=== PATIENT | female | born 1990 | race Two or more races ===

== ENCOUNTER 2016-07-20 08:49 | Emergency (ER) | payer MEDICAID ==
[~2016-07-20] VITALS: Ht 152.4 cm; Wt 72.7 kg
[~2016-07-20 08:49] MED LIST: PREN1TAB27 PO
[2016-07-20] MEDS ORDERED: KETOROLAC 30 MG/1 ML IVPush ONE (09:30)
[2016-07-20] MEDS ORDERED: SODIUM CHLORIDE FLUSH 10ML SYR IVF ONE (09:30)
[2016-07-20] MEDS ORDERED: KETOROLAC 30 MG/1 ML ONE (09:38)
[2016-07-20 09:54] LABS: BLOOD UREA NITROGEN 10 mg/dL (7-18)
[2016-07-20] MEDS ORDERED: HYDROcodone/APAP 5/325 TABLET PO ONE (11:00)
[2016-07-20 11:28] VITALS: BP 134/68
== END 2016-07-20 11:30 | disposition home or self-care (01) ==
LOC: ED 11:25
DX: M94.0 Chondrocostal junction syndrome [Tietze] (principal)
CPT/HCPCS: 36415; 71020; 80048; 82040; 84484; 85025; 85379; 93005; 96374; 99285; J1885

== ENCOUNTER 2016-08-14 02:13 | Emergency (ER) | payer MEDICAID | END 2016-08-14 03:40 | LOC: ED 02:13 | DX: R07.89 Other chest pain (principal); K21.9 Gastro-esophageal reflux disease without esophagitis | CPT/HCPCS: 93005; 99283 ==

== ENCOUNTER 2017-03-29 12:13 | Emergency (ER) | payer MEDICAID, OTHER ==
[~2017-03-29] VITALS: Ht 152.4 cm; Wt 70.9 kg
[2017-03-29] MEDS ORDERED: KETOROLAC 30 MG/1 ML IM ONE (14:30)
[2017-03-29] MEDS ORDERED: OXYcodone/APAP 5/325MG TABLET PO ONE (14:30)
[2017-03-29] MEDS ORDERED: DIAZEPAM 5 MG TABLET PO ONE (14:30)
[2017-03-29] MEDS ORDERED: DIAZEPAM 5 MG TABLET ONE (14:35)
[2017-03-29] MEDS ORDERED: KETOROLAC 30 MG/1 ML ONE (14:36)
[2017-03-29] MEDS ORDERED: OXYcodone/APAP 5/325MG TABLET ONE (14:36)
[2017-03-29 15:22] VITALS: BP 128/78
== END 2017-03-29 14:22 | disposition home or self-care (01) ==
LOC: ED 14:16
DX: G89.29 Other chronic pain (principal); M54.5 Low back pain; K21.9 Gastro-esophageal reflux disease without esophagitis
CPT/HCPCS: 96372; 99283; J1885

== ENCOUNTER 2019-03-31 14:55 | Emergency (ER) | payer MEDICAID ==
[~2019-03-31] VITALS: Ht 165.1 cm; Wt 83.7 kg
[2019-03-31 14:57] VITALS: BP 134/85
--- NOTE | 2019-03-31 15:18 | NUR ---
Pt reports she had shrimp soup at work and went into anaphylaxis and started breathing labored, and her face swelled up. Pt was given allergy medications by md on scene (epi 0.03, solumedrol 62.5mg, benadryl 50mg,) pt medications reversed. Pt resting in room, vss. Pt reports no airway obstruction or difficulty breathing.
--- NOTE | 2019-03-31 17:22 | NUR ---
Patient/Caregiver given discharge instructions and they have confirmed that they understand the instructions. Patient ambulatory with steady gait.
== END 2019-03-31 17:26 | disposition home or self-care (01) ==
LOC: ED 17:00
DX: T78.3XXA Angioneurotic edema, initial encounter (principal); K21.9 Gastro-esophageal reflux disease without esophagitis
CPT/HCPCS: 99283

== ENCOUNTER 2019-04-03 11:37 | Emergency (ER) | payer MEDICAID ==
[~2019-04-03] VITALS: Ht 162.6 cm; Wt 81.8 kg
--- NOTE | 2019-04-03 13:35 | NUR ---
from lobby to room. as
[2019-04-03] MEDS ORDERED: GABA300C10 PO (13:46)
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
[2019-04-03 14:13] LABS: BASOPHILS # (AUTO) 0.08 x10^3/uL (0-0.1); BASOPHILS % (AUTO) 1 % (0-1); EOSINOPHILS # (AUTO) 0.12 x10^3/uL (0-0.4); EOSINOPHILS % (AUTO) 1 % (1-7); LYMPHOCYTES # (AUTO) 1.78 x10^3/uL (1-3.4); LYMPHOCYTES % (AUTO) 21 % (22-44); MD NO; MEAN CORPUSCULAR HEMOGLOBIN 30.4 pg (27.0-34.8); MEAN CORPUSCULAR HGB CONC 33.8 g/dL (32.4-35.8); MEAN CORPUSCULAR VOLUME 89.9 fL (80-100); MEAN PLATELET VOLUME 7.6 fL (7.4-10.4); MONOCYTES # (AUTO) 0.35 x10^3/uL (0.2-0.8); MONOCYTES % (AUTO) 4 % (2-9); NEUTROPHILS # (AUTO) 6.01 x10^3/uL (1.8-6.8); NEUTROPHILS % (AUTO) 72 % (42-75); PLATELET COUNT 211 x10^3/uL (130-400); RED BLOOD COUNT 4.55 x10^6/uL (3.82-5.3); RED CELL DISTRIBUTION WIDTH 13.6 % (9.6-15.2)
[2019-04-03 14:25] LABS: ALANINE AMINOTRANSFERASE 36 U/L (12-78); ALBUMIN 3.2 g/dL (3.4-5.0); ANION GAP 5 mmol/L (5-15); CALCIUM 8.6 mg/dL (8.5-10.1); CHLORIDE 110 mmol/L (98-107); CREATININE 0.61 mg/dL (0.55-1.02)
[2019-04-03 14:30] LABS: ALKALINE PHOSPHATASE 61 U/L (45-117); BILIRUBIN,TOTAL 0.3 mg/dL (0.2-1.0); T4 (THYROXINE) 11.8 mcg/dL (4.8-13.9); TOTAL PROTEIN 6.6 g/dL (6.4-8.2)
--- NOTE | 2019-04-03 14:54 | NUR ---
REPORT FROM DIOMEDES. RESULTS BACK, PT FOR RECHECK.
[2019-04-03 15:53] VITALS: BP 128/81
--- NOTE | 2019-04-03 15:54 | NUR ---
PT AMBULATORY WITH STEADY GAIT TO DC DESK.
== END 2019-04-03 15:55 | disposition home or self-care (01) ==
LOC: ED 15:14
DX: R55 Syncope and collapse (principal); R00.2 Palpitations
CPT/HCPCS: 36415; 71045; 80053; 83735; 84436; 84443; 84703; 85025; 93005; 99284

== ENCOUNTER 2019-04-25 07:47 | Inpatient (IN) | payer MEDICAID ==
[~2019-04-25] VITALS: Ht 152.4 cm; Wt 80.8 kg
[~2019-04-25 07:47] MED LIST changes: +GABA300C10 PO
[2019-04-25] MEDS ORDERED: MORPHINE SULFATE 4 MG/ML, 1ML ONE ×2 (08:00→10:02)
[2019-04-25] MEDS ORDERED: ONDANSETRON 2MG/ML, 2ML ONE (08:00)
[2019-04-25] MEDS ORDERED: ONDANSETRON 2MG/ML, 2ML IVPush ONE (08:00)
[2019-04-25] MEDS ORDERED: SODIUM CHLORIDE FLUSH 10ML SYR IVF ONE (08:00)
--- NOTE | 2019-04-25 08:03 | NUR ---
THIS IS A 28 YEAR OLD FEMALE WHO WAS BIB AMBULANCE DUE TO SEVERE UPPER MID ABD PAIN. 12/18. PT RECEIVED 4 ABILIO, 100MCG OF FENTANYL, 250CC OF NORMAL SALINE. PT STATES PAIN IS NOW 10/18. OBTAIN URINE SENT TO LAB. DISCUSSED PLAN OF CARE. PT VERBALIZED UNDERSTANDING
[2019-04-25] MEDS: MORPHINE SULFATE 4 MG/ML, 1ML IVPush PRN ×2 (08:06→10:06)
[2019-04-25 08:24] LABS: MICROSCOPIC INDICATED
[2019-04-25 08:35] LABS: CULTURE INDICATED? YES
[2019-04-25 08:38] LABS: BASOPHILS # (AUTO) 0.11 x10^3/uL (0-0.1); BASOPHILS % (AUTO) 1 % (0-1); EOSINOPHILS # (AUTO) 0.18 x10^3/uL (0-0.4); EOSINOPHILS % (AUTO) 2 % (1-7); LYMPHOCYTES # (AUTO) 1.01 x10^3/uL (1-3.4); LYMPHOCYTES % (AUTO) 9 % (22-44); MD NO; MEAN CORPUSCULAR HEMOGLOBIN 30.9 pg (27.0-34.8); MEAN CORPUSCULAR HGB CONC 34.4 g/dL (32.4-35.8); MEAN CORPUSCULAR VOLUME 89.8 fL (80-100); MEAN PLATELET VOLUME 8.3 fL (7.4-10.4); MONOCYTES % (AUTO) 5 % (2-9); NEUTROPHILS # (AUTO) 8.98 x10^3/uL (1.8-6.8); NEUTROPHILS % (AUTO) 83 % (42-75); PLATELET COUNT 233 x10^3/uL (130-400); RED BLOOD COUNT 4.41 x10^6/uL (3.82-5.3); RED CELL DISTRIBUTION WIDTH 14.1 % (9.6-15.2)
[2019-04-25 08:47] LABS: ALANINE AMINOTRANSFERASE 290 U/L (12-78); ALBUMIN 3.1 g/dL (3.4-5.0); ANION GAP 6 mmol/L (5-15); CALCIUM 8.4 mg/dL (8.5-10.1); CHLORIDE 109 mmol/L (98-107); CREATININE 0.77 mg/dL (0.55-1.02)
[2019-04-25 08:54] LABS: ALKALINE PHOSPHATASE 98 U/L (45-117); BILIRUBIN,TOTAL 3.6 mg/dL (0.2-1.0); TOTAL PROTEIN 6.7 g/dL (6.4-8.2)
--- NOTE | 2019-04-25 09:09 | NUR ---
DR. RANDLE IN ROOM. PT WILL BE ADMITTED. PT DENIES ANY PAIN AT THIS TIME
[2019-04-25] MEDS ORDERED: MORPHINE SULFATE 4 MG/ML, 1ML IVPush ONE (10:00)
[2019-04-25] MEDS ORDERED: SODIUM CHLORIDE 0.9% 1,000ML IVBOLUS ONE (10:00)
[2019-04-25] MEDS ORDERED: SODIUM CHLORIDE 0.9% 1,000 ML IV ONE (10:00)
--- NOTE | 2019-04-25 10:06 | NUR ---
MEDICATED WITH MORPHINE FOR 8/10 ABD PAIN. IV STARTED, INFUSING WELL. CALL LIGHT IN PLACE. PT VERBALIZED NO OTHER NEEDS AT THIS TIME
[2019-04-25] MEDS ORDERED: CEFTRIAXONE PMX 1GM/50ML 50 ML ONE (10:21)
[2019-04-25] MEDS ORDERED: CEFTRIAXONE PMX 1GM/50ML 50 ML IV SCH (10:30)
[2019-04-25] MEDS ORDERED: ASPIRIN 81 MG TABLET CHEW ONE (10:30)
[2019-04-25] MEDS ORDERED: SODIUM CHLORIDE 0.9% 1,000 ML IV SCH ×2 (10:30)
[2019-04-25] MEDS ORDERED: LACTATED RINGERS 1,000 ML IVBOLUS ONE (10:30)
[2019-04-25] MEDS ORDERED: ASPIRIN 81 MG TABLET CHEW PO ONE (10:30)
[2019-04-25] MEDS: LACTATED RINGERS 1,000 ML IV SCH ×2 (10:30→16:08)
[2019-04-25] MEDS ORDERED: POTASSIUM CHLORIDE 40 MEQ in SODIUM CHLORIDE 0.9% 500 ML IV ONE (10:30)
[2019-04-25] MEDS ORDERED: PROMETHAZINE 25 MG/ML, 1ML IM PRN (10:30)
--- NOTE | 2019-04-25 10:46 | NUR ---
REPORT TO RAYMUNDO CURIEL, PLAN OF CARE DISCUSSED. BLOOD CULTURES DRAWN X 2. IV ROCEFEN STARTED
[2019-04-25 11:03] LABS: CHOL/HDL RATIO 6.7; CHOLESTEROL, TOTAL 247 mg/dL (140-239); HDL CHOL % 15 % (28-40); HDL CHOLESTEROL (DIRECT) 37 mg/dL (40-60); LDL CHOLESTEROL,CALCULATED 169 mg/dL (54-169); LDL/HDL RATIO 4.6 (0.5-3.0); TRIGLYCERIDES 204 mg/dL (50-200); VLDL CHOLESTEROL 41 mg/dL (0-25)
[2019-04-25 11:04] LABS: TROPONIN I < 0.015 ng/mL (0.000-0.045)
[2019-04-25 11:38] VITALS: BP 117/80
[2019-04-25] MEDS: GABAPENTIN 300 MG CAPSULE PO SCH ×2 (11:53→20:04)
[2019-04-25] MEDS: HEPARIN 5,000 UNITS/ML, 1ML SQ SCH ×2 (11:53→20:03)
[2019-04-25 14:10] VITALS: BP 142/78
[2019-04-25] MEDS: morphine SULFATE 10 MG/ML, 1ML IVPush PRN ×2 (14:17→17:29)
[2019-04-25] MEDS: METRONIDAZOLE PMX 500MG/100ML 100 ML IV SCH ×2 (16:15→22:09)
[2019-04-25 16:28] LABS: TROPONIN I < 0.015 ng/mL (0.000-0.045)
[2019-04-25] MEDS: POTASSIUM CHLORIDE 20 MEQ in LACTATED RINGERS 1,000 ML IV SCH ×2 (17:29→21:20)
[2019-04-25] MEDS ORDERED: ACETAMINOPHEN 325 MG TABLET ONE (17:46)
[2019-04-25] MEDS: ACETAMINOPHEN 325 MG TABLET PO PRN (17:48)
[2019-04-25 18:44] VITALS: BP 135/80
[2019-04-25 19:02] VITALS: BP 124/79
[2019-04-25] MEDS: OXYcodone IR 5MG TABLET PO PRN (20:04)
[2019-04-25] MEDS: ONDANSETRON 2MG/ML, 2ML IVPush PRN (20:14)
[2019-04-25 23:10] LABS: TROPONIN I < 0.015 ng/mL (0.000-0.045)
[2019-04-26 00:01] VITALS: BP 137/84
[2019-04-26] MEDS: OXYcodone IR 5MG TABLET PO PRN ×5 (00:13→20:14)
[2019-04-26] MEDS: ACETAMINOPHEN 325 MG TABLET PO PRN (00:15)
[2019-04-26] MEDS: POTASSIUM CHLORIDE 20 MEQ in LACTATED RINGERS 1,000 ML IV SCH ×3 (02:46→14:00)
[2019-04-26] MEDS: HEPARIN 5,000 UNITS/ML, 1ML SQ SCH ×2 (04:17→16:08)
[2019-04-26] MEDS: METRONIDAZOLE PMX 500MG/100ML 100 ML IV SCH (04:17)
[2019-04-26 05:41] LABS: ALANINE AMINOTRANSFERASE 168 U/L (12-78); ALBUMIN 2.6 g/dL (3.4-5.0); ANION GAP 5 mmol/L (5-15); CALCIUM 8.1 mg/dL (8.5-10.1); CHLORIDE 111 mmol/L (98-107)
[2019-04-26 05:43] LABS: BASOPHILS # (AUTO) 0.03 x10^3/uL (0-0.1); BASOPHILS % (AUTO) 0 % (0-1); EOSINOPHILS # (AUTO) 0.13 x10^3/uL (0-0.4); EOSINOPHILS % (AUTO) 1 % (1-7); LYMPHOCYTES # (AUTO) 1.73 x10^3/uL (1-3.4); LYMPHOCYTES % (AUTO) 13 % (22-44); MD NO; MEAN CORPUSCULAR HEMOGLOBIN 30.5 pg (27.0-34.8); MEAN CORPUSCULAR VOLUME 89.9 fL (80-100); MEAN PLATELET VOLUME 8.3 fL (7.4-10.4); MONOCYTES # (AUTO) 0.59 x10^3/uL (0.2-0.8); MONOCYTES % (AUTO) 5 % (2-9); NEUTROPHILS # (AUTO) 10.77 x10^3/uL (1.8-6.8); NEUTROPHILS % (AUTO) 81 % (42-75); PLATELET COUNT 206 x10^3/uL (130-400); RED BLOOD COUNT 4.05 x10^6/uL (3.82-5.3); RED CELL DISTRIBUTION WIDTH 13.8 % (9.6-15.2)
[2019-04-26 05:44] LABS: ALKALINE PHOSPHATASE 77 U/L (45-117); CREATININE 0.57 mg/dL (0.55-1.02)
[2019-04-26 07:21] VITALS: BP 135/88
[2019-04-26] MEDS: GABAPENTIN 300 MG CAPSULE PO SCH ×2 (08:03→20:14)
[2019-04-26] MEDS: PIPERACILLIN/TAZO/PMX 4.5GM 100 ML IV SCH ×3 (10:05→21:29)
[2019-04-26] MEDS ORDERED: SUCCINYLCHOLINE 20 MG/ML, 10ML ONE (13:39)
[2019-04-26] MEDS ORDERED: PROPOFOL 10 MG/ML, 20ML ONE (13:39)
[2019-04-26] MEDS ORDERED: ONDANSETRON 2MG/ML, 2ML ONE (13:39)
[2019-04-26] MEDS ORDERED: DEXAMETHASONE 4 MG/ML, 1ML ONE (13:39)
[2019-04-26] MEDS ORDERED: MIDAZOLAM 1 MG/ML, 2ML ONE (13:40)
[2019-04-26] MEDS ORDERED: ALBUTEROL SULFATE 2.5 MG/3 ML NPPB PRN (14:30)
[2019-04-26] MEDS ORDERED: METOCLOPRAMIDE 5 MG/ML, 2ML IV PRN (14:30)
[2019-04-26] MEDS ORDERED: OXYcodone 5 MG/5 ML ORAL.SOL UDC PO PRN (14:30)
[2019-04-26] MEDS ORDERED: PROMETHAZINE 25 MG/ML, 1ML IV PRN (14:30)
[2019-04-26] MEDS ORDERED: HYDROmorphone 1 MG/ML, 1ML INJ IV PRN (14:30)
[2019-04-26] MEDS ORDERED: FENTANYL PF 100 MCG/2ML IV PRN (14:30)
[2019-04-26] MEDS ORDERED: LABETALOL 5MG/ML, 20ML IV PRN (14:30)
[2019-04-26] MEDS ORDERED: MEPERIDINE/PF 25MG/0.5ML IVPush PRN (14:30)
[2019-04-26] MEDS ORDERED: KETOROLAC 30 MG/1 ML IV PRN (14:30)
[2019-04-26] MEDS ORDERED: DIAZEPAM 5 MG/ML, 2ML IV PRN ×2 (14:30)
[2019-04-26] MEDS ORDERED: ONDANSETRON 2MG/ML, 2ML IVPush PRN (14:30)
[2019-04-26] MEDS ORDERED: hydrALAzine 20 MG/ML, 1ML IV PRN (14:30)
[2019-04-26 16:14] VITALS: BP 121/72
[2019-04-26 18:59] VITALS: BP 125/76
[2019-04-27 00:21] VITALS: BP 129/84
[2019-04-27] MEDS: OXYcodone IR 5MG TABLET PO PRN ×3 (00:25→18:42)
[2019-04-27] MEDS: HEPARIN 5,000 UNITS/ML, 1ML SQ SCH ×3 (00:26→16:17)
[2019-04-27] MEDS: ONDANSETRON 2MG/ML, 2ML IVPush PRN (00:59)
[2019-04-27] MEDS: PIPERACILLIN/TAZO/PMX 4.5GM 100 ML IV SCH (03:19)
[2019-04-27 03:20] VITALS: BP 132/77
[2019-04-27 05:46] LABS: ALANINE AMINOTRANSFERASE 107 U/L (12-78); ALBUMIN 2.4 g/dL (3.4-5.0); ANION GAP 6 mmol/L (5-15); CALCIUM 7.8 mg/dL (8.5-10.1); CHLORIDE 106 mmol/L (98-107); CREATININE 0.56 mg/dL (0.55-1.02)
[2019-04-27 05:48] LABS: ALKALINE PHOSPHATASE 66 U/L (45-117); BILIRUBIN,TOTAL 0.7 mg/dL (0.2-1.0)
[2019-04-27 06:08] LABS: BASOPHILS # (AUTO) 0.03 x10^3/uL (0-0.1); BASOPHILS % (AUTO) 0 % (0-1); EOSINOPHILS # (AUTO) 0.12 x10^3/uL (0-0.4); EOSINOPHILS % (AUTO) 1 % (1-7); LYMPHOCYTES # (AUTO) 1.33 x10^3/uL (1-3.4); LYMPHOCYTES % (AUTO) 14 % (22-44); MD NO; MEAN CORPUSCULAR HEMOGLOBIN 30.5 pg (27.0-34.8); MEAN CORPUSCULAR HGB CONC 33.9 g/dL (32.4-35.8); MEAN CORPUSCULAR VOLUME 89.9 fL (80-100); MEAN PLATELET VOLUME 8.9 fL (7.4-10.4); MONOCYTES # (AUTO) 0.44 x10^3/uL (0.2-0.8); MONOCYTES % (AUTO) 5 % (2-9); NEUTROPHILS # (AUTO) 7.83 x10^3/uL (1.8-6.8); NEUTROPHILS % (AUTO) 80 % (42-75); PLATELET COUNT 200 x10^3/uL (130-400); RED BLOOD COUNT 3.97 x10^6/uL (3.82-5.3); RED CELL DISTRIBUTION WIDTH 13.8 % (9.6-15.2)
[2019-04-27] MEDS ORDERED: EPINEPHRINE 1 MG/ML, 1ML ONE (06:30)
[2019-04-27] MEDS ORDERED: BUPIVACAINE/PF 0.5% ONE (06:30)
[2019-04-27] MEDS ORDERED: FENTANYL PF 250 MCG/5ML ONE (07:20)
[2019-04-27] MEDS ORDERED: DEXAMETHASONE 4 MG/ML, 1ML ONE (07:45)
[2019-04-27] MEDS ORDERED: NEOSTIGMINE 1 MG/ML, 10ML ONE (07:45)
[2019-04-27] MEDS ORDERED: ROCURONIUM 10MG/ML,5ML ONE (07:45)
[2019-04-27] MEDS ORDERED: PROPOFOL 10 MG/ML, 20ML ONE (07:45)
[2019-04-27] MEDS ORDERED: ONDANSETRON 2MG/ML, 2ML ONE (07:45)
[2019-04-27] MEDS ORDERED: GLYCOPYRROLATE 0.2MG/1ML, 5ML ONE (07:45)
[2019-04-27] MEDS ORDERED: BUPIVACAINE/PF-EPI 0.5% 1:200K INFIL ONE (07:46)
[2019-04-27] MEDS ORDERED: KETOROLAC 30 MG/1 ML ONE (07:49)
[2019-04-27] MEDS ORDERED: OXYcodone 5 MG/5 ML ORAL.SOL UDC PO PRN (08:00)
[2019-04-27] MEDS ORDERED: METOPROLOL 1 MG/ML, 5ML IV PRN (08:00)
[2019-04-27] MEDS ORDERED: MEPERIDINE/PF 25MG/ML,1ML IVPush PRN (08:00)
[2019-04-27] MEDS ORDERED: HYDROmorphone 2 MG/ML, 1ML IVPush PRN (08:00)
[2019-04-27] MEDS ORDERED: hydrALAzine 20 MG/ML, 1ML IV PRN (08:00)
[2019-04-27] MEDS ORDERED: ALBUTEROL/IPRATROPIUM 2.5MG/0.5MG, 3 ML NPPB PRN (08:00)
[2019-04-27] MEDS ORDERED: ACETAMINOPHEN 325 MG TABLET PO PRN (08:00)
[2019-04-27] MEDS ORDERED: MIDAZOLAM 1 MG/ML, 2ML IV PRN (08:00)
[2019-04-27] MEDS ORDERED: PROMETHAZINE 25 MG/ML, 1ML IV PRN (08:00)
[2019-04-27] MEDS ORDERED: OXYcodone 5 MG/5 ML ORAL.SOL UDC ONE ×2 (08:59→09:05)
[2019-04-27] MEDS ORDERED: FENTANYL PF 100 MCG/2ML ONE ×2 (08:59→09:36)
[2019-04-27] MEDS: FENTANYL PF 100 MCG/2ML IV PRN ×4 (09:01→09:57)
[2019-04-27] MEDS: AMOXICILLIN/CLAV 875-125MG TABLET PO SCH ×2 (11:54→21:09)
[2019-04-27] MEDS: morphine SULFATE 10 MG/ML, 1ML IVPush PRN (11:54)
[2019-04-27] MEDS: POTASSIUM CHLORIDE 20 MEQ TAB.ER.PRT PO SCH ×2 (11:54→16:17)
[2019-04-27] MEDS: GABAPENTIN 300 MG CAPSULE PO SCH ×2 (11:54→21:09)
[2019-04-27 13:35] VITALS: BP 105/57
[2019-04-27 20:04] VITALS: BP 120/71
[2019-04-27 23:52] VITALS: BP 118/70
[2019-04-28] MEDS: HEPARIN 5,000 UNITS/ML, 1ML SQ SCH ×2 (00:35→08:02)
[2019-04-28] MEDS: OXYcodone IR 5MG TABLET PO PRN ×3 (02:36→12:24)
[2019-04-28 03:52] VITALS: BP 121/79
[2019-04-28 05:30] LABS: ALBUMIN 2.3 g/dL (3.4-5.0); ANION GAP 5 mmol/L (5-15); CALCIUM 7.9 mg/dL (8.5-10.1); CHLORIDE 111 mmol/L (98-107)
[2019-04-28 05:36] LABS: ALANINE AMINOTRANSFERASE 87 U/L (12-78); ALKALINE PHOSPHATASE 55 U/L (45-117); BILIRUBIN,TOTAL 0.5 mg/dL (0.2-1.0); CREATININE 0.52 mg/dL (0.55-1.02); TOTAL PROTEIN 5.7 g/dL (6.4-8.2)
[2019-04-28 07:41] VITALS: BP 123/75
[2019-04-28] MEDS: GABAPENTIN 300 MG CAPSULE PO SCH (08:02)
[2019-04-28] MEDS: AMOXICILLIN/CLAV 875-125MG TABLET PO SCH (08:02)
[2019-04-28] MEDS: POTASSIUM CHLORIDE 20 MEQ TAB.ER.PRT PO SCH (08:02)
[2019-04-28] MEDS ORDERED: POTA20TA6 PO (12:56)
[2019-04-28] MEDS ORDERED: ONDA4TAB7 PO (12:56)
[2019-04-28] MEDS ORDERED: AMOX1TAB12 PO (12:56)
[2019-04-28 12:58] VITALS: BP 129/79
[2019-04-28] MEDS ORDERED: OXYC5CAP2 PO (14:26)
== END 2019-04-28 15:01 | disposition home or self-care (01) | DRG 417 ==
LOC: ED 09:10 → UNDOADMIN 09:47 → EDIP 09:47 → 4EST 11:42 → 4NE 04-27 10:11 → DCLOUNGE 04-28 14:47
PROVIDERS: ADMIT Emergency Medicine; ATTEND Emergency Medicine
PROC: 0FC98ZZ Extirpation of Matter from Common Bile Duct, Via Natural or Artificial Opening Endoscopic (ICD-10-PCS; 2019-04-26)
PROC: 0FT44ZZ Resection of Gallbladder, Percutaneous Endoscopic Approach (ICD-10-PCS; principal; 2019-04-27 07:30)
DX: K80.62 Calculus of gallbladder and bile duct with acute cholecystitis without obstruction (principal); K85.10 Biliary acute pancreatitis without necrosis or infection; E66.9 Obesity, unspecified; Z68.34 Body mass index [BMI] 34.0-34.9, adult; E87.6 Hypokalemia; G89.4 Chronic pain syndrome; K76.0 Fatty (change of) liver, not elsewhere classified; K82.8 Other specified diseases of gallbladder; Z91.013 Allergy to seafood; Z91.048 Other nonmedicinal substance allergy status; K76.89 Other specified diseases of liver
CPT/HCPCS: 36415; 74328; 96374; 96375; 96376; 99285; S0020; 76700; 80053; 80061; 80307; 81001; 83690; 83735; 84484; 84703; 85025; 87040; 87086; 88304; 93005; G0378; J0171; J0696; J1100; J1644; J1885; J2250; J2405; J2543; J2550; J2704; J2710; J3010; J3480; J0330; J2270; J7030; J7040; J7120

== ENCOUNTER 2019-05-11 14:56 | Emergency (ER) | payer MEDICAID ==
[~2019-05-11] VITALS: Ht 152.4 cm; Wt 81.6 kg
[~2019-05-11 14:56] MED LIST changes: +AMOX1TAB12 PO; +ONDA4TAB7 PO; +OXYC5CAP2 PO; +POTA20TA6 PO
[2019-05-11 17:54] LABS: BASOPHILS # (AUTO) 0.05 x10^3/uL (0-0.1); BASOPHILS % (AUTO) 1 % (0-1); EOSINOPHILS # (AUTO) 0.27 x10^3/uL (0-0.4); EOSINOPHILS % (AUTO) 3 % (1-7); LYMPHOCYTES # (AUTO) 2.21 x10^3/uL (1-3.4); LYMPHOCYTES % (AUTO) 20 % (22-44); MD NO; MEAN CORPUSCULAR HEMOGLOBIN 30.2 pg (27.0-34.8); MEAN CORPUSCULAR HGB CONC 33.9 g/dL (32.4-35.8); MEAN CORPUSCULAR VOLUME 89.3 fL (80-100); MEAN PLATELET VOLUME 9.1 fL (7.4-10.4); MONOCYTES % (AUTO) 4 % (2-9); NEUTROPHILS # (AUTO) 7.98 x10^3/uL (1.8-6.8); NEUTROPHILS % (AUTO) 73 % (42-75); PLATELET COUNT 383 x10^3/uL (130-400); RED BLOOD COUNT 4.62 x10^6/uL (3.82-5.3); RED CELL DISTRIBUTION WIDTH 13.8 % (9.6-15.2)
[2019-05-11 18:00] LABS: ANION GAP 10 mmol/L (5-15); CALCIUM 9.1 mg/dL (8.5-10.1); CHLORIDE 106 mmol/L (98-107)
[2019-05-11 18:04] LABS: ALANINE AMINOTRANSFERASE 78 U/L (12-78); ALKALINE PHOSPHATASE 60 U/L (45-117); BILIRUBIN,TOTAL 0.7 mg/dL (0.2-1.0); CREATININE 0.68 mg/dL (0.55-1.02); TOTAL PROTEIN 7.9 g/dL (6.4-8.2)
--- NOTE | 2019-05-11 18:56 | NUR ---
pt to room from lobby
--- NOTE | 2019-05-11 19:09 | NUR ---
PT AMBULATORY TO RESTROOM TO OBTAIN A URINE SAMPLE, STEADY GAIT NOTED
[2019-05-11 19:15] VITALS: BP 143/73
--- NOTE | 2019-05-11 19:15 | NUR ---
URINE SAMPLE PROVIDED, LABELED AND SENT TO LAB. DR. CRUM AT BEDSIDE EVALUATING PT
[2019-05-11] MEDS ORDERED: ONDANSETRON 2MG/ML, 2ML ONE (19:24)
[2019-05-11] MEDS ORDERED: HYDROmorphone 1 MG/ML, 1ML INJ ONE (19:24)
[2019-05-11 19:25] LABS: MICROSCOPIC NOT IND
[2019-05-11 19:28] LABS: CULTURE INDICATED? NO
[2019-05-11] MEDS ORDERED: ONDANSETRON 2MG/ML, 2ML IVPush ONE (19:30)
[2019-05-11] MEDS ORDERED: HYDROmorphone 2 MG/ML, 1ML IVPush PRN (19:30)
[2019-05-11] MEDS ORDERED: SODIUM CHLORIDE FLUSH 10ML SYR IVF ONE (19:30)
--- NOTE | 2019-05-11 20:04 | NUR ---
IV ESTABLISHED, PT MEDICATED PER EMAR FOR PAIN. 5 RIGHTS ADDRESSED. CALL LIGHT WITHIN REACH. AWAITING CT AT THIS TIME.
--- NOTE | 2019-05-11 20:53 | NUR ---
PT SLEEPING, RESPIRATIONS EVEN AND UNLABORED. ALL VITALS STABLE. WILL CONTINUE TO MONITOR.
--- NOTE | 2019-05-11 21:05 | NUR ---
PT BACK FROM CT
[2019-05-11] MEDS ORDERED: OMNIPAQUE 350 MG/ML, 100ML BOTTLE ONE (21:09)
--- NOTE | 2019-05-11 21:13 | NUR ---
IV INFILTRATED IN CT
--- NOTE | 2019-05-11 21:29 | NUR ---
DR. CRUM AT BEDSIDE UPDATING PT ON POC
== END 2019-05-11 22:23 | disposition home or self-care (01) ==
LOC: ED 22:00
DX: R10.12 Left upper quadrant pain (principal); R50.9 Fever, unspecified; R11.0 Nausea; K21.9 Gastro-esophageal reflux disease without esophagitis; Z90.49 Acquired absence of other specified parts of digestive tract
CPT/HCPCS: 36415; 74177; 76700; 80053; 81003; 83690; 85025; 96374; 96375; 99285; J1170; J2405; Q9967